=== PATIENT | male | born 1970 | race Two or more races ===

== ENCOUNTER 2021-03-19 14:52 | Outpatient (CLI) | payer OTHER | END 2021-03-19 23:59 | disposition home or self-care (01) | LOC: CFH 14:52 | PROVIDERS: ATTEND Pain Medicine Pain Medicine | DX: M50.023 Cervical disc disorder at C6-C7 level with myelopathy (principal); M50.123 Cervical disc disorder at C6-C7 level with radiculopathy; M48.02 Spinal stenosis, cervical region; M25.78 Osteophyte, vertebrae | CPT/HCPCS: 72125 ==